=== PATIENT | male | born 1950 | race Caucasian/White ===

== ENCOUNTER 2016-08-15 06:59 | Day surgery (SDC) | payer MEDICARE, BC ==
[2016-08-15] MEDS ORDERED: Lactated Ringers 1,000 ML IV SCH (07:30)
[2016-08-15] MEDS ORDERED: fentaNYL 100 MCG/2 ML SDV ONE (07:34)
[2016-08-15] MEDS ORDERED: Propofol 200 MG/20 ML SDV ONE (07:34)
[2016-08-15] MEDS ORDERED: Midazolam 1 MG/ML 2 ML SDV ONE (07:34)
[2016-08-15 09:51] VITALS: BP 108/70
--- NOTE | 2016-08-16 10:22 | OR ---
DATE OF PROCEDURE: 08/15/2016 PREOPERATIVE DIAGNOSIS: Colon cancer screening. POSTOPERATIVE DIAGNOSIS: Diverticulosis, two small colon polyps. PROCEDURE PERFORMED: Colonoscopy to the cecum with biopsy resection of small polyps at the hepatic flexure and 40 cm from the anal verge. ANESTHESIA: IV anesthesia with monitored anesthesia care. INDICATION: This 65-year-old white male is referred for a screening colonoscopy. He says his last colonoscopic exam was done ten years ago. I counseled him for the procedure including risks and alternatives, and he gave his informed consent to proceed. DESCRIPTION OF PROCEDURE: The patient was placed in the left lateral decubitus position. IV anesthesia was administered by the Anesthesia Service. Time-out was held. A rectal exam was performed, which was unremarkable. The flexible video Olympus colonoscope was introduced through his anus, up his rectum, and out his colon all way to the cecum. En route, we saw very few scattered diverticula. There was no bleeding or inflammation associated with any of them. Once the cecum was reached, the scope was slowly withdrawn examining the mucosa throughout. At the hepatic flexure, a small polyp was seen which was removed with a single bite of the biopsy forceps. The scope was withdrawn further with no other additional lesions noted until we reached 40 cm from the anal verge. Here, we saw what appeared to be another small polyp. This was removed with a single bite of the biopsy forceps. The scope was brought back into the rectum, where it was retroflexed. The distal rectum appeared unremarkable. The scope was straightened and removed. He tolerated the procedure well. Sourav Esqueda MD /[id number] MTDClara
== END 2016-08-15 10:28 | disposition home or self-care (01) ==
LOC: JP.SDS 06:59
PROVIDERS: ATTEND Surgery
DX: Z12.11 Encounter for screening for malignant neoplasm of colon (principal); D12.3 Benign neoplasm of transverse colon; D12.6 Benign neoplasm of colon, unspecified; K57.30 Diverticulosis of large intestine without perforation or abscess without bleeding; I10 Essential (primary) hypertension; K21.9 Gastro-esophageal reflux disease without esophagitis; E66.9 Obesity, unspecified; E78.5 Hyperlipidemia, unspecified; Z91.030 Bee allergy status
CPT/HCPCS: 45380; J2250; J2704; J3010; J7120; 88305

== ENCOUNTER 2017-06-18 11:22 | Emergency (ER) | payer MEDICARE, BC ==
[2017-06-18 11:36] VITALS: BP 150/89
--- NOTE | 2017-06-18 11:57 | EDM.PDOC ---
ED HPI GENERAL MEDICAL PROBLEM - General Chief Complaint: Respiratory Problem Stated Complaint: COUGH Time Seen by Provider: 06/18/17 11:50 Source of Information: Reports: Patient, RN Notes Reviewed History Limitations: Reports: No Limitations - History of Present Illness INITIAL COMMENTS - FREE TEXT/NARRATIVE: 66-year-old gentleman presents emergency department today cough and wheezing. 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 seasonal he does have a sick contact about 2 weeks prior he denies any fevers - Related Data Allergies Allergy/AdvReac Type Severity Reaction Status Date / Time bee venom protein (honey bee) Allergy Other Verified 06/18/17 11:35 Home Meds: Home Meds amLODIPine Besylate/Benazepril [Amlodipine-Benazepril 10-20 MG] 1 each PO DAILY 02/17/13 [History] Cetirizine [ZyrTEC] 10 mg PO DAILY 08/12/16 [History] Fluticasone Propionate [Flonase] 1 spray NS ASDIRECTED PRN 08/12/16 [History] Hydrocort/Neomycin/Polymyxin B [Voksuakp-Jlhabrkjs-YS Otic Susp] 2 ml EARBOTH BID PRN 08/12/16 [History] Past Medical History HEENT History: Reports: Allergic Rhinitis, Cataract, Other (See Below) Other HEENT History: ears will become blocked at times on drops for this Cardiovascular History: Reports: Hypertension Gastrointestinal History: Reports: Colon Polyp, GERD Musculoskeletal History: Reports: Gout Endocrine/Metabolic History: Reports: Obesity/BMI 30+ - Infectious Disease History Infectious Disease History: Reports: Chicken Pox, Measles, Mumps - Past Surgical History HEENT Surgical History: Reports: Other (See Below) Other HEENT Surgeries/Procedures: left eye surg. Cardiovascular Surgical History: Reports: None GI Surgical History: Reports: Colonoscopy Endocrine Surgical History: Reports: None Dermatological Surgical History: Reports: None Social & Family History - Caffeine Use Caffeine Use: Reports: Coffee - Alcohol Use Days Per Week of Alcohol Use: 3 Number of Drinks Per Day: 1 Total Drinks Per Week: 3 - Recreational Drug Use Recreational Drug Use: No ED ROS GENERAL - Review of Systems Review Of Systems: See Below Constitutional: Denies: Fever, Chills HEENT: Reports: No Symptoms Respiratory: Reports: Wheezing, Cough. Denies: Shortness of Breath, Sputum Cardiovascular: Reports: No Symptoms GI/Abdominal: Reports: No Symptoms : Reports: No Symptoms ED EXAM, GENERAL - Physical Exam Exam: See Below Exam Limited By: No Limitations General Appearance: Alert, WD/WN, No Apparent Distress Head: Atraumatic, Normocephalic Neck: Normal Inspection, Supple, Non-Tender, Full Range of Motion Respiratory/Chest: No Respiratory Distress, No Accessory Muscle Use, Decreased Breath Sounds, Wheezing. No: Respiratory Distress Cardiovascular: Regular Rate, Rhythm, No Murmur Course - Vital Signs Last Recorded V/S: Last Vital Signs Temp 96.1 F 06/18/17 11:37 Pulse 64 06/18/17 11:37 Resp 16 06/18/17 11:37 BP 150/89 H 06/18/17 11:37 Pulse Ox 100 06/18/17 11:37 Departure - Departure Time of Disposition: 11:56 Disposition: Home, Self-Care 01 Condition: Good Clinical Impression: Bronchitis - Discharge Information Referrals: Luke Lara MD [Primary Care Provider] - Additional Instructions: Take full course of antibiotics, take full course of prednisone, Please followup with your primary care provider in 5-7 days if not better, please call return to the emergency department with worsening of symptoms. - Assessment/Plan Plan: Assessment Acuity = acute Site and laterality = bronchitis Etiology = probable bacterial cause Manifestations = wheezing Location of injury = Home Lab values = none Plan Needed talked to him about further evaluation including blood work and chest x- ray he declined at this time elected to do empiric treatment prescription written for Z-Prashanth per package directions and redness on 20 mg once day for 5 days follow-up primary care in 5-7 days if no improvement prescription sent to [facility] This note was dictated using [employer] voice recognition software please call with any questions on syntax or jennifer.
== END 2017-06-18 12:08 | disposition home or self-care (01) ==
LOC: JP.ED 11:22
DX: J40 Bronchitis, not specified as acute or chronic (principal); I10 Essential (primary) hypertension; K21.9 Gastro-esophageal reflux disease without esophagitis; E66.9 Obesity, unspecified; Z91.030 Bee allergy status; Z79.899 Other long term (current) drug therapy; Z68.34 Body mass index [BMI] 34.0-34.9, adult
CPT/HCPCS: 99283; 99285

== ENCOUNTER 2019-12-30 07:23 | Day surgery (SDC) | payer MEDICARE, BC ==
[2019-12-30] MEDS ORDERED: Dextrose 5%-Lactated Ringers 1,000 ML IV SCH (08:15)
[2019-12-30] MEDS ORDERED: Propofol 200 MG/20 ML SDV ONE ×2 (08:24→08:30)
[2019-12-30] MEDS ORDERED: fentaNYL 100 MCG/2 ML SDV ONE (08:24)
[2019-12-30] MEDS ORDERED: Midazolam 1 MG/ML 2 ML SDV ONE (08:25)
[2019-12-30 11:09] VITALS: BP 127/73; PULSE 41
--- NOTE | 2020-01-03 15:31 | OR ---
DATE OF PROCEDURE: 12/30/2019 SURGEON: Wes Forte MD PREOPERATIVE DIAGNOSIS: History of colon polyps. POSTOPERATIVE DIAGNOSES: 1. Single recurrent polyp in the distal sigmoid colon. 2. Left colonic diverticulosis. OPERATIVE PROCEDURE: Flexible colonoscopy with polypectomy by snare technique. ANESTHESIA: IV sedation. INDICATION FOR PROCEDURE: This 69-year-old presenting with a history of colon polyps for followup colonoscopy with biopsies and polypectomy as indicated. Potential risks including bleeding and perforation were discussed, and the patient wishes to proceed. DETAILS OF PROCEDURE: The patient was taken to the operating room and placed in a left lateral decubitus position. IV sedation was administered, after which the digital rectal exam was performed, which was unremarkable. Colonoscope was passed into the rectum with retroflexion revealing uncomplicated hemorrhoidal columns. Scope was then passed to the level of cecum. The prep was fairly good with only a small amount of liquid stool present. There was some uncomplicated left colonic diverticulosis, but otherwise there was a single polyp roughly 30 cm from the dentate line within the distal sigmoid colon. Apart from that there were no areas of colitis and no additional areas of polyps or signs of neoplasia. The polyp was encircled at its base with a cautery snare and removed and sent for histologic evaluation. The scope was then withdrawn no complications were evident. We will await the pathology report. Assuming this is an adenomatous polyp, the patient should undergo a repeat colonoscopy in the range of 2 to 3 years. We will contact the patient when the pathology becomes available. Wes Forte MD /[id number]
== END 2019-12-30 11:17 | disposition home or self-care (01) ==
LOC: JP.SDS 07:23
PROVIDERS: ATTEND Surgery
DX: Z12.11 Encounter for screening for malignant neoplasm of colon (principal); D12.5 Benign neoplasm of sigmoid colon; K57.30 Diverticulosis of large intestine without perforation or abscess without bleeding; K64.9 Unspecified hemorrhoids; I10 Essential (primary) hypertension
CPT/HCPCS: 45385; 88305; J2250; J2704; J3010; J7121

== ENCOUNTER → 2023-03-01 | Day surgery (SDC) | payer MEDICARE, BC ==
[~2023-03-01] MED LIST: Midazolam 1 MG/ML 2 ML SDV ONE; Propofol 200 MG/20 ML SDV ONE; Sodium Chloride 0.9% 1,000 ML IV SCH; fentaNYL 50 MCG/ML SDV ONE
[2023-03-01 10:17] VITALS: BP 110/68; PULSE 49
== END ==
LOC: JP.SDS 07:29
PROVIDERS: ATTEND Surgery
DX: Z12.11 Encounter for screening for malignant neoplasm of colon (principal); K57.30 Diverticulosis of large intestine without perforation or abscess without bleeding; I10 Essential (primary) hypertension; E78.5 Hyperlipidemia, unspecified
CPT/HCPCS: G0121; J2250; J2704; J3010; J7030